=== PATIENT | female | born 1985 | race Caucasian/White ===

== ENCOUNTER 2021-02-04 22:00 | Emergency (ER) | payer SELFPAY ==
[~2021-02-04] VITALS: Ht 172.7 cm; Wt 77.1 kg
[2021-02-04 22:55] VITALS: BP 132/78
[2021-02-05] MEDS ORDERED: FLUCONAZOLE (100 MG) 100 MG TABLET ONE (00:11)
[2021-02-05] MEDS ORDERED: CLOT15CR27 TP (00:12)
[2021-02-05] MEDS: FLUCONAZOLE (100 MG) 100 MG TABLET PO ONE (00:14)
--- NOTE | 2021-02-05 00:20 | NUR ---
Patient discharged to home in stable condition. Written and verbal after care instructions given. Patient verbalizes understanding of instruction. Pt. ambulatory with a steady gait.
== END 2021-02-05 00:24 | disposition home or self-care (01) ==
LOC: ER 22:03
DX: R21 Rash and other nonspecific skin eruption (principal)